=== PATIENT | female | born 1980 | race Caucasian/White ===

== ENCOUNTER → 2016-04-30 | Outpatient (CLI) | payer BC ==
[~2016-04-30] MED LIST: AZIT250T94 PO; IBUP-1542 PO; PREN1TAB49 PO
[2016-04-30 08:30] LABS: ADD SCAN DIFF NO
[2016-04-30 08:36] LABS: BASOPHILS % 0.5 % (0.0-2.0); EOSINOPHILS # 0.1 10^3/ul (0.0-0.5); EOSINOPHILS % 0.8 % (0.0-7.0); HEMATOCRIT 39.9 % (37.0-47.0); HEMOGLOBIN 13.6 g/dl (12.0-16.0); LYMPHOCYTES # 1.4 10^3/ul (0.8-2.9); LYMPHOCYTES % 22.4 % (15.0-51.0); MEAN CORPUSCULAR HEMOGLOBIN 29.2 pg (29.0-33.0); MEAN CORPUSCULAR HGB CONC 34.1 g/dl (32.0-37.0); MEAN CORPUSCULAR VOLUME 85.8 fl (82.0-101.0); MEAN PLATELET VOLUME 9.8 fl (7.4-10.4); MONOCYTE # 0.5 10^3/ul (0.3-0.9); MONOCYTES % 7.9 % (0.0-11.0); NEUTROPHIL # 4.3 10^3/ul (1.6-7.5); NEUTROPHILS % 68.1 % (39.0-77.0); PLATELET COUNT 304 10^3/UL (140-415); RED BLOOD COUNT 4.65 10^6/ul (4.20-5.40); RED CELL DISTRIBUTION WIDTH 12.4 % (11.5-14.5); WHITE BLOOD COUNT 6.4 10^3/ul (4.8-10.8)
[2016-04-30 08:38] LABS: ADD UMIC YES; URINE BILIRUBIN (Dip) NEGATIVE (NEGATIVE); URINE BLOOD (Dip) 3+ (NEGATIVE); URINE COLOR LT. YELLOW (YELLOW); URINE GLUCOSE (Dip) NEGATIVE (NEGATIVE); URINE KETONES (Dip) NEGATIVE (NEGATIVE); URINE LEUKOCYTE ESTERASE (Dip) NEGATIVE (NEGATIVE); URINE NITRITE (Dip) NEGATIVE (NEGATIVE); URINE TOTAL PROTEIN (Dip) NEGATIVE (NEGATIVE); URINE UROBILINOGEN (Dip) 0.2 E.U./dL (0.1-1.0)
[2016-04-30 08:57] LABS: ALBUMIN 4.4 g/dl (3.3-4.9)
[2016-04-30 08:58] LABS: POTASSIUM 4.6 mmol/L (3.5-5.1)
[2016-04-30 09:00] LABS: ALBUMIN/GLOBULIN RATIO 1.29; BILIRUBIN,INDIRECT 0.3 mg/dl (0-1.1); BILIRUBIN,TOTAL 0.3 mg/dl (0.2-1.3); CREATININE 0.66 mg/dl (0.44-1.00); TOTAL PROTEIN 7.8 g/dl (6.1-8.1)
[2016-04-30 09:01] LABS: CALCIUM 9.4 mg/dl (8.4-10.2); CHOL/HDL RATIO 3.9 RATIO; URIC ACID 5.6 mg/dl (3.1-7.9)
[2016-04-30 09:30] LABS: THYROID STIMULATING HORMONE 1.41 MIU/L (0.465-4.680)
== END | disposition home or self-care (01) ==
LOC: LAB 07:56
PROVIDERS: ATTEND Internal Medicine
DX: Z00.00 Encounter for general adult medical examination without abnormal findings (principal); B35.1 Tinea unguium; E55.9 Vitamin D deficiency, unspecified; M21.619 Bunion of unspecified foot
CPT/HCPCS: 80053; 80061; 81001; 81003; 82306; 84443; 84560; 85025

== ENCOUNTER 2016-07-19 07:41 | Emergency (ER) | payer BC ==
[~2016-07-19] VITALS: Ht 154.9 cm; Wt 85.0 kg
[2016-07-19 07:45] VITALS: Ht 154.9 cm; Wt 85.0 kg
[2016-07-19 08:27] LABS: URINE BLOOD (Dip) POC 3+ (NEGATIVE)
[2016-07-19] MEDS ORDERED: PHEN-537 PO (09:08)
[2016-07-19] MEDS ORDERED: NITR-58 PO (09:08)
--- NOTE | 2016-07-19 18:30 | ERD ---
ER Documentation Chief Complaint Date/Time DATE: 07/19/16 TIME: 18:28 Chief Complaint dysuria x 3 days HPI 36-year-old female patient with no significant past medical history presents the ED complaining of dysuria that started 4 days ago. Reports that she went to the pharmacy to buy Azo pills which slightly helped with the burning sensation. Reports that she still has urgency to go and has suprapubic pain when she urinates. Reports that her last menses was on July 09, 2016. Denies any abdominal pain, nausea, vomiting, flank pain, hematuria, vaginal discharge. Denies being concerned about STDs. Denies being . ROS All systems reviewed and are negative except as per history of present illness. Medications Home Meds Active Scripts Phenazopyridine Hcl* (Pyridium*) 100 Mg Tab, 100 MG PO TID Y for URINARY PAIN, # 8 TAB Prov:ANNELISE ROJAS PA-C 07/19/16 Nitrofurantoin Monohyd Macrocr* (Macrobid*) 100 Mg Capsr, 100 MG PO BID for 7 Days, CAP Prov:ANNELISE ROJAS PA-C 07/19/16 Ibuprofen* (Motrin*) 600 Mg Tab, 600 MG PO Q6, #30 TAB Prov:CAROL COFFEY 09/23/15 Azithromycin* (Zithromax*) 250 Mg Tablet, 250 MG PO .ZPACK DIRECTED, #6 TAB TAKE 500 MG (2 TABS) THE FIRST DAY THEN 250 MG (1 TAB) DAYS 2-5 Prov:CAROL COFFEY 09/23/15 Reported Medications Vits W-Ca,Fe,Fa(<1MG) () 1 Tab Tablet, 1 TAB PO DAILY 05/25/12 Allergies Allergies: Coded Allergies: No Known Allergy (Unverified , 08/06/11) PMhx/Soc Medical and Surgical Hx: pt denies Medical Hx, pt denies Surgical Hx Hx Miscellaneous Medical Probl: No (DENIES SURGERIES/PMH) Hx Alcohol Use: No Hx Substance Use: No Hx Tobacco Use: No Smoking Status: Never smoker Physical Exam Vitals Vital Signs Date Time Temp Pulse Resp B/P Pulse Ox O2 Delivery O2 Flow Rate FiO2 07/19/16 07:45 97.9 96 18 165/90 100 Physical Exam Const: Ijb-[id number], well-nourished. In no acute distress. Head: Atraumatic, normocephalic Eyes: Normal Conjunctiva without injection. No purulent discharge. ENT: Normal external ear, nose. Moist oropharynx without tonsillar exudates. Non -erythematous pharynx. Uvula midline. No drooling. No trismus. Neck: No cervical midline tenderness. Full range of motion. No meningismus. No cervical lymphadenopathy. No JVD. Resp: Clear to auscultation bilaterally. No wheezing, rhonchi, rales, or crackles. No accessory muscle use. No retractions. Cardio: Regular rate and rhythm. No murmurs, rubs or gallops. Abd: Soft, nontender, non distended. Normal bowel sounds. No palpable masses. No rebound tenderness. No guarding. Negative McBurney's point. Negative psoas sign. Negative obturator sign. Skin: No petechiae or rashes Back: No midline tenderness. No CVA tenderness. Ext: No cyanosis, or edema. Neur: Awake and alert. Normal gait. Normal coordination. Psych: Normal Mood and Affect Results 24 hrs Laboratory Tests Test 07/19/16 08:29 Bedside Urine pH (LAB) 6.5 Bedside Urine Protein (LAB) 1+ Bedside Urine Glucose (UA) 0.1% Bedside Urine Ketones (LAB) Negative Bedside Urine Blood 3+ Bedside Urine Nitrite (LAB) Positive Bedside Urine Leukocyte Esterase (L 3+ Procedures/MDM This is a 36-year-old female patient with no significant past medical history presents the ED complaining of dysuria that started 3 days ago. Patient is afebrile and nontoxic-appearing. Patient's blood pressure was noted to be 165/ 90. Patient's blood pressure was elevated (>120/80) but appears stable without evidence of hypertension emergency or urgency. The patient was counseled about the risks of hypertension and urged to pursue outpatient monitoring and therapy within a week with their primary care physician. Urine dip was ordered which showed leukocyte esterase, positive nitrite, 3+ hematuria. Patient likely has a urinary tract infection. No CVA tenderness. No flank pain. Low suspicion for pyelonephritis, septic renal stone. Negative . Low suspicion for gastritis, GERD, peptic ulcer disease, cholecystitis, choledocholithiasis, cholangitis, pancreatitis, appendicitis, bowel obstruction, ileus, volvulus, nephrolithiasis, pyelonephritis, hepatitis, perforated viscus, diverticulitis, abdominal hernia, acute abdomen, mesenteric ischemia or other emergent conditions. Discharge medications: Macrobid, Pyridium Follow up with primary care physician in 1-2 days for referral to director of conservation. Instructed patient to return to the ED sooner for any worsening symptoms. Patient's questions were answered. Patient understood and agreed with discharge plan. Patient discharged stable. Departure Diagnosis: Primary Impression: Urinary tract infection Urinary tract infection type: site unspecified Hematuria presence: without hematuria Qualified Code: N39.0 - Urinary tract infection without hematuria, site unspecified Condition: Stable Patient Instructions: Urinary Tract Infections in Women, Understanding Urinary Tract Infections (UTIs) Referrals: [facility] YOU HAVE RECEIVED A MEDICAL SCREENING EXAM AND THE RESULTS INDICATE THAT YOU DO NOT HAVE A CONDITION THAT REQUIRES URGENT TREATMENT IN THE EMERGENCY DEPARTMENT. FURTHER EVALUATION AND TREATMENT OF YOUR CONDITION CAN WAIT UNTIL YOU ARE SEEN IN YOUR DOCTORS OFFICE WITHIN THE NEXT 1-2 DAYS. IT IS YOUR RESPONSIBILITY TO MAKE AN APPOINTMENT FOR FOLOW-UP CARE. IF YOU HAVE A PRIMARY DOCTOR --you should call your primary doctor and schedule an appointment IF YOU DO NOT HAVE A PRIMARY DOCTOR YOU CAN CALL OUR PHYSICIAN REFERRAL HOTLINE AT IF YOU CAN NOT AFFORD TO SEE A PHYSICIAN YOU CAN CHOSE FROM THE FOLLOWING [facility] [address] [facility]. [facility] [address] [facility] [facility] [address] [facility]. [facility] [address] [facility]. [facility] [address] [facility]. [facility]. [address] [facility]. [facility] YOU HAVE RECEIVED A MEDICAL SCREENING EXAM AND THE RESULTS INDICATE THAT YOU DO NOT HAVE A CONDITION THAT REQUIRES URGENT TREATMENT IN THE EMERGENCY DEPARTMENT. FURTHER EVALUATION AND TREATMENT OF YOUR CONDITION CAN WAIT UNTIL YOU ARE SEEN IN YOUR DOCTORS OFFICE WITHIN THE NEXT 1-2 DAYS. IT IS YOUR RESPONSIBILITY TO MAKE AN APPOINTMENT FOR FOLOW-UP CARE. IF YOU HAVE A PRIMARY DOCTOR --you should call your primary doctor and schedule and appointment IF YOU DO NOT HAVE A PRIMARY DOCTOR YOU CAN CALL OUR PHYSICIAN REFERRAL HOTLINE AT . IF YOU CAN NOT AFFORD TO SEE A PHYSICIAN YOU CAN CHOSE FROM THE FOLLOWING [facility] INSTITUTIONS: [facility] [address] [place] [address] [facility] [address] [place] [address] [facility] [address] [place] [address] [facility] URGENT CARE/SPECIALTIES Additional Instructions: Call your primary care doctor TOMORROW for an appointment during the next 2-3 days.See the doctor sooner or return here if your condition worsens before your appointment time. ANNELISE ROJAS PA-C July 19, 2016 18:30
== END 2016-07-19 09:28 | disposition home or self-care (01) ==
LOC: FTE 07:41 → EEVIPCON 07:41 → FTE 09:28
DX: N39.0 Urinary tract infection, site not specified (principal)
CPT/HCPCS: 81003; 99283

== ENCOUNTER 2017-09-21 07:33 | Emergency (ER) | END 2017-09-21 08:10 | disposition home or self-care (01) ==

== ENCOUNTER 2018-02-13 07:39 | Emergency (ER) | END 2018-02-13 08:15 | disposition home or self-care (01) ==

== ENCOUNTER 2018-08-01 07:32 | Emergency (ER) | payer BC ==
[~2018-08-01] VITALS: Wt 82.0 kg
[~2018-08-01 07:32] MED LIST changes: +ACET500C5 PO; +AMOX500C2 PO; +AZIT250T PO; -AZIT250T94 PO; +CEPH-443 PO; +NITR-58 PO; +PHEN-537 PO; +PHEN-538 PO
[2018-08-01 07:33] VITALS: BP 140/76; PULSE 79; RESP 18
--- NOTE | 2018-08-01 08:16 | ERD ---
ER Documentation Chief Complaint Chief Complaint DYSURIA HPI Patient 38-year-old female presenting with dysuria x3 days. Patient states she noticed blood in her urine yesterday but states she has not had any blood in her urine since that one episode. Has history of recurrent UTIs and was last treated 6 months ago here in the ER. Patient describes her symptoms to what she is experienced in the past when she has a UTI. Patient denies nausea vomiting diarrhea and vaginal discharge. Patient denies fever, chills, body aches, and back pain. Patient's last menstrual cycle was July 18, 2018. Patient denies any allergies to medications. ROS All systems reviewed and are negative except as per history of present illness. Medications Home Meds Active Scripts Ciprofloxacin Hcl* (Ciprofloxacin Hcl*) 500 Mg Tablet, 500 MG PO BID for 3 Days, TAB Prov:LANE MORALES PA-C 08/01/18 Acetaminophen* (Tylophen*) 500 Mg Capsule, 1 CAP PO Q6H PRN for PAIN AND OR ELEVATED TEMP, #20 CAP Prov:ANNELISE ROJAS PA-C 02/13/18 Amoxicillin* (Amoxicillin*) 500 Mg Cap, 500 MG PO BID for 10 Days, CAP Prov:ANNELISE ROJAS PA-C 02/13/18 Phenazopyridine Hcl* (Pyridium*) 200 Mg Tab, 200 MG PO TID PRN for URINARY PAIN, #6 TAB Prov:DIMITRIS OSBORNE PA-C 09/21/17 Cephalexin* (Keflex*) 500 Mg Capsule, 500 MG PO TID for 7 Days, CAP Prov:DIMITRIS OSBORNE PA-C 09/21/17 Phenazopyridine Hcl* (Pyridium*) 100 Mg Tab, 100 MG PO TID PRN for URINARY PAIN, #8 TAB Prov:ANNELISE ROJAS PA-C 07/19/16 Nitrofurantoin Monohyd Macrocr* (Macrobid*) 100 Mg Capsr, 100 MG PO BID for 7 Days, CAP Prov:ANNELISE ROJAS PA-C 07/19/16 Ibuprofen* (Motrin*) 600 Mg Tab, 600 MG PO Q6, #30 TAB Prov:CAROL COFFEY 09/23/15 Azithromycin* (Zithromax*) 250 Mg Tablet, 250 MG PO .AMALIA DIRECTED, #6 TAB TAKE 500 MG (2 TABS) THE FIRST DAY THEN 250 MG (1 TAB) DAYS 2-5 Prov:CAROL COFFEY 09/23/15 Reported Medications Vits W-Ca,Fe,Fa(<1MG) () 1 Tab Tablet, 1 TAB PO DAILY 05/25/12 Allergies Allergies: Coded Allergies: No Known Allergy (Unverified , 09/21/17) PMhx/Soc History of Surgery: Yes (C SECTION X2) Anesthesia Reaction: No Hx Miscellaneous Medical Probl: Yes (UTI) Hx Alcohol Use: No Hx Substance Use: No Hx Tobacco Use: No Smoking Status: Never smoker FmHx Family History: No diabetes, No coronary disease, No other Physical Exam Vitals Vital Signs Date Temp Pulse Resp B/P (MAP) Pulse Ox O2 O2 Flow FiO2 Time Delivery Rate 08/01/18 98.1 79 18 140/76 99 07:33 (97) Physical Exam Const: No acute distress Resp: Clear to auscultation bilaterally Cardio: Regular rate and rhythm, no murmurs Abd: Soft, non tender, non distended. Normal bowel sounds Back: No midline or flank tenderness Results 24 hrs Laboratory Tests Test 08/01/18 08:15 08/01/18 08:19 Urine Color SHEILA Urine Clarity CLOUDY Urine pH 6.0 Urine Specific [place]apphire 1.015 Urine Ketones TRACE mg/dL Urine Nitrite POSITIVE mg/dL Urine Bilirubin NEGATIVE mg/dL Urine Urobilinogen 2+ mg/dL Urine Leukocyte Esterase 3+ Esau/ul Urine Microscopic RBC 30 /HPF Urine Microscopic WBC > 182 /HPF Urine Squamous Epithelial Cells FEW /HPF Urine Bacteria FEW /HPF Urine Hemoglobin 2+ mg/dL Urine Glucose NEGATIVE mg/dL Urine Total Protein 1+ mg/dl POC Beta HCG, Qualitative NEGATIVE Current Medications Medications Dose Sig/Spike Start Time Status Last (Trade) Ordered Route PRN Stop Time Admin Dose Reason Admin 250 mg ONCE ONCE 08/01/18 DC 08/01/18 Ciprofloxacin PO 08:30 08:33 (Cipro) 08/01/18 08:31 200 mg ONCE ONCE 08/01/18 DC 08/01/18 Phenazopyridi PO 08:30 08:19 ne HCl 08/01/18 08:31 (Pyridium) Procedures/MDM ED course: The patient was stable throughout the ED course. The patient and/or family informed of laboratory and diagnostic imaging results throughout the ED course. Medications given in ER: Cipro Pyrridium Patient tolerated medication well with no adverse reactions. Patient reported improvement in pain. Medical decision makin-year-old female chief complaint dysuria. Patient has history of recurrent UTI. Patient stated she had blood in her urine yesterday. I have low suspicion of Hitesh nephritis based on physical examination and history of illness. Patient has no fever chills or back pain. Laureano's punch was negative on physical exam. Patient had negative test. Low suspicion for acute coronary syndrome, AAA, mesenteric ischemia, lower lobe with no pneumonia, DKA, bowel perforation, cholecystitis,choledocholithiasis, ascending cholangitis hepatic abscess, pancreatitis, PUD, gastritis, GERD, splenic rupture, diverticulitis, pyelonephritis, nephrolithiasis, appendicitis, constipation, , ectopic , PID, ovarian torsion. Prescription for home: Patient was discharged with prescription for Keflex Discharge: At this time, patient is stable for discharge and outpatient management. I have instructed the patient to follow-up with his\her primary care physician in 1 to 2 days. I have discussed with the patient the possibility of needing to see a specialist for further work-up and imaging studies if symptoms persist. I have instructed the patient to promptly return to the ER for any new or worsening symptoms including increased pain, fever, nausea, vomiting, weakness or LOC. The patient and\or family expressed understanding of and agreement with this plan. All questions were answered. Home care instructions were provided. Disclaimer: Inadvertent spelling and grammatical errors are likely due to EHR\dictation software use and do not reflect on the overall quality of patient care. Also, please note that the electronic time recorded on the note does not necessarily reflect the actual time of the patient encounter. Departure Diagnosis: Primary Impression: UTI (urinary tract infection) Urinary tract infection type: acute cystitis Hematuria presence: without hematuria Qualified Codes: N30.00 - Acute cystitis without hematuria Condition: LANE Whiting PA-C August 01, 2018 08:16
[2018-08-01] MEDS ORDERED: PHENAZOPYRIDINE 100 MG TAB PO ONE (08:30)
[2018-08-01] MEDS ORDERED: CIPROFLOXACIN 250 MG TAB PO ONE (08:30)
[2018-08-01] MEDS ORDERED: CIPR500T4 PO (08:48)
== END 2018-08-01 09:01 | disposition home or self-care (01) ==
LOC: FTE 07:32
DX: N30.00 Acute cystitis without hematuria (principal)
CPT/HCPCS: 81001; 81025; 87086; 99283